=== PATIENT | female | born 2005 | race Caucasian/White ===

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

== ENCOUNTER 2024-07-02 10:57 | Emergency (ER) | payer SELFPAY | END 2024-07-02 11:41 | disposition home or self-care (01) | LOC: ERS 10:57 | DX: R22.9 Localized swelling, mass and lump, unspecified (principal); F90.9 Attention-deficit hyperactivity disorder, unspecified type | CPT/HCPCS: 99283 ==